=== PATIENT | female | born 1995 | race Caucasian/White ===

== ENCOUNTER 2017-03-28 14:02 | Emergency (ER) | payer OTHER ==
[~2017-03-28] VITALS: Ht 175.3 cm; Wt 71.0 kg
[~2017-03-28 14:02] MED LIST: PREN1CAP PO
[2017-03-28 14:03] VITALS: BP 129/59; PULSE 88; RESP 16; TEMP 98.2; O2SAT 99
[2017-03-28 15:19] LABS: BILIRUBIN, URINE NEG (NEG); BLOOD, URINE NEG (NEG); GLUCOSE,URINE TRACE mg/dL (NEG); KETONE, URINE NEG (NEG); NITRITE,URINE NEG (NEG); PH, URINE 6.5 (5.0-8.5); SQUAMOUS EPITHELIAL CELL URINE 1 /hpf (0-5); URINE COLOR YELLOW (YELLW/STRAW); URINE LEUKOCYTE ESTERASE NEG (NEG)
[2017-03-28 15:24] LABS: AUTOMATED NEUTROPHIL # 4.9 TH/MM3 (1.8-7.7); BASOPHIL % 0.2 % (0.0-2.0); EOSINOPHIL # 0.1 TH/MM3 (0-0.4); EOSINOPHIL % 1.4 % (0.0-4.0); HEMATOCRIT 40.5 % (35.0-46.0); LYMPH % 19.4 % (9.0-44.0); LYMPHOCYTE # 1.3 TH/MM3 (1.0-4.8); MEAN CELL VOLUME 89.5 FL (80.0-100.0); MEAN CORPUSCULAR HEMOGLOBIN 30.9 PG (27.0-34.0); MEAN CORPUSCULAR HGB CONC 34.5 % (32.0-36.0); MEAN PLATELET VOLUME 9.6 FL (7.0-11.0); MONO % 6.1 % (0.0-8.0); MONOCYTE # 0.4 TH/MM3 (0-0.9); NEUT % 72.9 % (16.0-70.0); PLATELET COUNT 211 TH/MM3 (150-450); RED BLOOD COUNT 4.52 MIL/MM3 (4.00-5.30); RED CELL DISTRIBUTION WIDTH 12.1 % (11.6-17.2); WHITE BLOOD COUNT 6.7 TH/MM3 (4.0-11.0)
[2017-03-28 15:32] LABS: BICARBONATE 23.2 MEQ/L (21.0-32.0); CALCIUM 8.7 MG/DL (8.5-10.1); CREATININE 0.77 MG/DL (0.50-1.00)
--- NOTE | 2017-03-28 16:32 | PD ---
HPI Chief Complaint: Related Problem Time Seen by Provider: 16:15 Travel History International Travel<30 days: No Contact w/Intl Traveler<30days: No Traveled to known affect area: No History of Present Illness HPI The patient is a 22-year-old female who presents to the emergency department for lower abdominal pain and cramping with spotting states she fell yesterday. The patient states she is currently 7 weeks , last menstrual cycle approximately February 01, 2017. The patient's who normally follows with a history teacher, will not be evaluated for another 4 weeks. The patient states she fell yesterday, striking her lower abdomen, complains of mild cramping and spotting, is concerned about the . She denies any dysuria, frequency, or urgency. Symptoms are mild, exacerbated after falling, there are no current alleviating factors. PFSH Past Medical History Diminished Hearing: No Immunizations Current: Yes ?: LMP: 02/03/2017 Social History Alcohol Use: No Tobacco Use: No Substance Use: No Allergies-Medications (Allergen,Severity, Reaction): Coded Allergies: No Known Allergies (Verified Adverse Reaction, Unknown, 03/28/17) Reported Meds & Prescriptions Reported Meds & Active Scripts Active Reported Vitafol Ultra 29-0.6-0.4-200 mg ( Vit W/ Fe Polysacch C) 29 Mg Iron-1 Mg -200 Mg Cap Review of Systems Except as stated in HPI: all other systems reviewed are Neg General / Constitutional: No: Fever HENT: No: Headaches, Neck Pain Cardiovascular: No: Chest Pain or Discomfort Respiratory: No: Shortness of Breath Gastrointestinal: No: Nausea, Vomiting, Abdominal Pain Genitourinary: Positive: Pelvic Pain, Vaginal Bleeding, No: Dysuria Physical Exam Narrative GENERAL: Awake, alert, pleasant 22-year-old female who appears her stated age is in no acute respiratory distress. SKIN: Focused skin assessment warm/dry. HEAD: Atraumatic. Normocephalic. EYES: Pupils equal and round. No scleral icterus. No injection or drainage. ENT: No nasal bleeding or discharge. Mucous membranes pink and moist. NECK: Trachea midline. No JVD. GASTROINTESTINAL: Abdomen soft, non-tender, nondistended. No visible ecchymosis. No guarding or rigidity. Pelvic: Exam was performed in the presence of a female nurse. External examination reveals no rashes or lesions. Speculum examination reveals no visible blood in the vaginal vault. Cervical IS closed. Mild erythema in a circumferential fashion around the os. MUSCULOSKELETAL: No obvious deformities. No clubbing. No cyanosis. No edema. NEUROLOGICAL: Awake and alert. No obvious cranial nerve deficits. Motor grossly within normal limits. Normal speech. PSYCHIATRIC: Appropriate mood and affect; insight and judgment normal. Data Data Last Documented VS Vital Signs Date Time Temp Pulse Resp B/P (MAP) Pulse Ox O2 Delivery O2 Flow Rate FiO2 03/28/17 16:30 18 03/28/17 14:03 98.2 88 129/59 (82) 99 Room Air Orders Orders Beta Hcg (Quant/Titer) (03/28/17 14:26) Complete Blood Count With Diff (03/28/17 14:26) Basic Metabolic Panel (Bmp) (03/28/17 14:26) Complete Rh (03/28/17 14:26) Urinalysis - C+S If Indicated (03/28/17 14:26) Ed Urine Pregnancytest Poc (03/28/17 14:26) Ed Poc Ultrasound (03/28/17 ) Labs Laboratory Tests Test 03/28/17 14:35 White Blood Count 6.7 TH/MM3 Red Blood Count 4.52 MIL/MM3 Hemoglobin 14.0 GM/DL Hematocrit 40.5 % Mean Corpuscular Volume 89.5 FL Mean Corpuscular Hemoglobin 30.9 PG Mean Corpuscular Hemoglobin Concent 34.5 % Red Cell Distribution Width 12.1 % Platelet Count 211 TH/MM3 Mean Platelet Volume 9.6 FL Neutrophils (%) (Auto) 72.9 % Lymphocytes (%) (Auto) 19.4 % Monocytes (%) (Auto) 6.1 % Eosinophils (%) (Auto) 1.4 % Basophils (%) (Auto) 0.2 % Neutrophils # (Auto) 4.9 TH/MM3 Lymphocytes # (Auto) 1.3 TH/MM3 Monocytes # (Auto) 0.4 TH/MM3 Eosinophils # (Auto) 0.1 TH/MM3 Basophils # (Auto) 0.0 TH/MM3 CBC Comment DIFF FINAL Differential Comment Urine Color YELLOW Urine Turbidity CLEAR Urine pH 6.5 Urine Specific [place] 1.023 Urine Protein NEG mg/dL Urine Glucose (UA) TRACE mg/dL Urine Ketones NEG mg/dL Urine Occult Blood NEG Urine Nitrite NEG Urine Bilirubin NEG Urine Urobilinogen LESS THAN 2.0 MG/DL Urine Leukocyte Esterase NEG Urine RBC LESS THAN 1 /hpf Urine WBC LESS THAN 1 /hpf Urine Squamous Epithelial Cells 1 /hpf Microscopic Urinalysis Comment CULT NOT INDICATED Blood Urea Nitrogen 13 MG/DL Creatinine 0.77 MG/DL Random Glucose 111 MG/DL Calcium Level 8.7 MG/DL Sodium Level 137 MEQ/L Potassium Level 3.4 MEQ/L Chloride Level 105 MEQ/L Carbon Dioxide Level 23.2 MEQ/L Anion Gap 9 MEQ/L Estimat Glomerular Filtration Rate 95 ML/MIN Human Chorionic Gonadotropin, Quant 68945 MIU/ML MDM Medical Decision Making Medical Screen Exam Complete: Yes Emergency Medical Condition: Yes Medical Record Reviewed: Yes Interpretation(s) Laboratory Tests Test 03/28/17 14:35 White Blood Count 6.7 TH/MM3 Red Blood Count 4.52 MIL/MM3 Hemoglobin 14.0 GM/DL Hematocrit 40.5 % Mean Corpuscular Volume 89.5 FL Mean Corpuscular Hemoglobin 30.9 PG Mean Corpuscular Hemoglobin Concent 34.5 % Red Cell Distribution Width 12.1 % Platelet Count 211 TH/MM3 Mean Platelet Volume 9.6 FL Neutrophils (%) (Auto) 72.9 % Lymphocytes (%) (Auto) 19.4 % Monocytes (%) (Auto) 6.1 % Eosinophils (%) (Auto) 1.4 % Basophils (%) (Auto) 0.2 % Neutrophils # (Auto) 4.9 TH/MM3 Lymphocytes # (Auto) 1.3 TH/MM3 Monocytes # (Auto) 0.4 TH/MM3 Eosinophils # (Auto) 0.1 TH/MM3 Basophils # (Auto) 0.0 TH/MM3 CBC Comment DIFF FINAL Differential Comment Urine Color YELLOW Urine Turbidity CLEAR Urine pH 6.5 Urine Specific [place] 1.023 Urine Protein NEG mg/dL Urine Glucose (UA) TRACE mg/dL Urine Ketones NEG mg/dL Urine Occult Blood NEG Urine Nitrite NEG Urine Bilirubin NEG Urine Urobilinogen LESS THAN 2.0 MG/DL Urine Leukocyte Esterase NEG Urine RBC LESS THAN 1 /hpf Urine WBC LESS THAN 1 /hpf Urine Squamous Epithelial Cells 1 /hpf Microscopic Urinalysis Comment CULT NOT INDICATED Blood Urea Nitrogen 13 MG/DL Creatinine 0.77 MG/DL Random Glucose 111 MG/DL Calcium Level 8.7 MG/DL Sodium Level 137 MEQ/L Potassium Level 3.4 MEQ/L Chloride Level 105 MEQ/L Carbon Dioxide Level 23.2 MEQ/L Anion Gap 9 MEQ/L Estimat Glomerular Filtration Rate 95 ML/MIN Human Chorionic Gonadotropin, Quant [id number] MIU/ML Differential Diagnosis Differential diagnosis includes normal , threatened AB, incomplete AB, ectopic , acute abdomen, intra-abdominal injury. Narrative Course Labs are drawn and sent. Beta hCG was greater than 50,000. Blood bank reveals a positive blood type, therefore, no indication for RhoGAM. Bedside ultrasound was performed which reveals an IUP with positive heart tones. A pelvic exam was then completed in the presence of a female nurse. Pelvic examination reveals mild erythema on the cervix around the house that the office is closed and there is no visible blood in the vaginal vault. Patient is stable for outpatient follow-up with a sealant mixer/micro photographer. Procedures Procedure Narrative A bedside ultrasound was performed using a curvilinear probe which reveals an IUP with positive heart tones. The patient tolerated the procedure without difficulty. There was no obvious complications. Diagnosis Primary Impression: Threatened Patient Instructions: General Instructions Additional Instructions: Take a vitamin. Follow-up with a sealant mixer. Return if symptoms worsen or progress. No sexual activity or heavy exertional activity for one week. Med/Other Pt SpecificInfo: No Change to Meds Disposition: 01 DISCHARGE HOME Condition: Stable Rell Vines MD Mar 28, 2017 16:32
[2017-03-28] MEDS ORDERED: PREN1CAP (16:38)
== END 2017-03-28 17:01 | disposition home or self-care (01) ==
LOC: NEPD 14:02
DX: O20.0 Threatened abortion (principal); W19.XXXA Unspecified fall, initial encounter; Z3A.01 Less than 8 weeks gestation of pregnancy
CPT/HCPCS: 80048; 81001; 84702; 84703; 85025; 86901; 99284

== ENCOUNTER 2017-10-27 11:29 | Inpatient (IN) ==
[2017-10-27] MEDS ORDERED: Sod Chloride 0.9% Inj 1,000 ML IV.CONT PRN (11:48)
[2017-10-27] MEDS ORDERED: Sodium Chlor 0.9% Inj 500 ML IV.SIG PRN (11:48)
[2017-10-27] MEDS ORDERED: Oxytocin 30 Units/500ml Premix 30 UNITS/500 ML BAG IV.SIG ONE (11:48)
[2017-10-27] MEDS ORDERED: Naloxone Inj 0.4 MG/ML Vial IV.PUSH PRN ×2 (11:48→15:22)
[2017-10-27] MEDS ORDERED: fentaNYL Citrate Inj 100 MCG/2 ML Ampul IV.PUSH PRN ×2 (11:48)
[2017-10-27] MEDS ORDERED: Citric Acid/Sodium Citrate Liq 30 ML UDC PO SCH (12:00)
--- NOTE | 2017-10-27 12:14 | ED ---
History of Present Illness Service: OB Primary Care Physician: No Primary Care Physician Chief Complaint: Contractions History of Present Illness: This is a patient of Pricila Gleason who is @ 37/6 weeks presenting to OB ED w/painful contractions. Denies leakage of fluids, current bleeding, or decreased movement. Had some vaginal bleeding yesterday, but underwent examination in the [facility] and was told there were no problems. +FM. No problems or issues this . Denies drug use or hx of STIs. GBS unknown. OB Hx: 1. in 2016, weight 7lb 9oz 2. Current no complications Weeks Gestation:: 37 Para: 1 : 2 Review of Systems Constitutional: Denies headache(s) Gastrointestinal: Denies abdominal pain Musculoskeletal: Reports other (No edema) PMFSH - History History Provided By: Patient - Medical / Surgical Hx Neg / Unobtainable Surgical History: No Previous Surgery - Medical History Medical History: Medical History (Last Updated 10/24/17 @ 19:35 by Rigoberto Paris MD) 37 weeks gestation of (Acute) - Family History Family History: Family History (Last Updated 10/24/17 @ 19:52 by Rigoberto Paris MD) Other No family history of disorders - Tobacco History Second Hand Smoke Exposure: No Tobacco Use In Past 30 Days: No Smoking Status: Never smoker - Alcohol History How Often Do You Have a Drink Containing Alcohol: Never - Substance Use History Substance History: No History of Abuse - Travel History History of Recent Travel: No Medications and Allergies Allergies Allergy/AdvReac Type Severity Reaction Status Date / Time No Known Allergies Allergy Verified 10/27/17 12:30 Exam Narrative: General: well developed, well nourished, no acute distress HEENT: normocephalic atraumatic, extraocular movements intact, neck supple Abdomen: soft, gravid, nontender, nondistended Uterus: fundus term Extremities: full range of motion Skin: normal coloration, no rashes, no suspicious skin lesions noted Neurologic: cranial nerves 2-12 grossly intact, normal muscle tone, normal gait Psychiatric: normal mood and affect, appropriate FHTs: 140s, +accels, no decels, moderate variability, reactive [place]: variable, irregular Cvx: 10 /100/0 Results - Labs CBC & Chem 7: 10/27/17 12:06 Assessment and Plan - Diagnosis (1) 37 weeks gestation of Code(s): Z3A.37 - 37 weeks gestation of Status: Acute - Plan @37/6 weeks presenting to the P[facility] in active labor. GBS unknown, but first was GBS negative. Cervical exam 10/100/0, FHT category 1. Plan to monitor, cervical recheck in 1-2 hrs. Discussed w/Dr. Calles - Attending Attestation The patient was seen and examined by me and I participated in all hernandez decision making. Admit for labor. Reassuring heart rate tracing. [facility] Discharge Plan - Discharge Order Discharge Orders: Discharge Order (Routine); Ordered 10/28/17 Ordered By: Fabiano Grant - Physicians Team Primary Care Provider: Primary Care Dave,No Attending Provider: Maria L Calles
[2017-10-27 12:45] LABS: Baso % (Auto) 0.2 % (0.0-2.0); Eos # (Auto) 0.1 th/mm3 (0.0-0.4); Eos % (Auto) 1.4 % (0.0-4.0); Hematocrit 38.2 % (35.0-46.0); Hemoglobin 12.8 gm/dL (11.6-15.3); Lymph # (Auto) 1.5 th/mm3 (1.0-4.8); Lymph % (Auto) 17.4 % (9.0-44.0); Mean Corpuscular HGB Conc 33.4 % (32.0-36.0); Mean Corpuscular Hemoglobin 27.3 pg (27.0-34.0); Mean Corpuscular Volume 81.8 fL (80.0-100.0); Mean Platelet Volume 10.4 fL (7.0-11.0); Mono # (Auto) 0.6 th/mm3 (0.0-0.9); Mono % (Auto) 6.4 % (0.0-8.0); Neut # (Auto) 6.5 th/mm3 (1.8-7.7); Neut % (Auto) 74.6 % (16.0-70.0); Platelet Count 185 th/mm3 (150-450); Red Blood Count 4.68 mil/mm3 (4.00-5.30); Red Cell Distribution Width 12.6 % (11.6-17.2); White Blood Count 8.7 th/mm3 (4.0-11.0)
--- NOTE | 2017-10-27 12:53 | P.HPOB ---
2 History of Present Illness Service: OB Primary Care Physician: No Primary Care Physician Chief Complaint: Contractions History of Present Illness: This is a patient of Pricila Gleason who is @ 37/6 weeks presenting to OB ED w/painful contractions. Denies leakage of fluids, current bleeding, or decreased movement. Had some vaginal bleeding yesterday, but underwent examination in the [facility] and was told there were no problems. +FM. No problems or issues this . Denies drug use or hx of STIs. GBS unknown. OB Hx: 1. in 2016, weight 7lb 9oz 2. Current no complications Weeks Gestation:: 37 Para: 1 : 2 Review of Systems Constitutional: Denies headache(s) Gastrointestinal: Denies abdominal pain Musculoskeletal: Reports other (No edema) PMFSH - History History Provided By: Patient - Medical / Surgical Hx Neg / Unobtainable Surgical History: No Previous Surgery - Medical History Medical History: Medical History (Last Updated 10/24/17 @ 19:35 by Rigoberto Paris MD) 37 weeks gestation of (Acute) - Family History Family History: Family History (Last Updated 10/24/17 @ 19:52 by Rigoberto Paris MD) Other No family history of disorders - Tobacco History Second Hand Smoke Exposure: No Tobacco Use In Past 30 Days: No Smoking Status: Never smoker - Alcohol History How Often Do You Have a Drink Containing Alcohol: Never - Substance Use History Substance History: No History of Abuse - Travel History History of Recent Travel: No Medications and Allergies Allergies Allergy/AdvReac Type Severity Reaction Status Date / Time No Known Allergies Unknown Uncoded 03/28/17 16:32 Exam Narrative: General: well developed, well nourished, no acute distress HEENT: normocephalic atraumatic, extraocular movements intact, neck supple Abdomen: soft, gravid, nontender, nondistended Uterus: fundus term Extremities: full range of motion Skin: normal coloration, no rashes, no suspicious skin lesions noted Neurologic: cranial nerves 2-12 grossly intact, normal muscle tone, normal gait Psychiatric: normal mood and affect, appropriate FHTs: 140s, +accels, no decels, moderate variability, reactive [place]: variable, irregular Cvx: 10 /100/0 Assessment and Plan - Diagnosis (1) 37 weeks gestation of Code(s): Z3A.37 - 37 weeks gestation of Status: Acute - Plan @37/6 weeks presenting to the P[facility] in active labor. GBS unknown, but first was GBS negative. Cervical exam 100/0, FHT category 1. Plan to monitor, cervical recheck in 1-2 hrs. Discussed w/Dr. Calles Discharge Plan - Physicians Team Primary Care Provider: Primary Care Dave,Susu Attending Provider: Maria L Calles The patient was seen and examined by me and I participated in all hernandez decision making. Admit for labor at term, reassuring heart rate tracing. SMS
--- NOTE | 2017-10-27 12:53 | P.PN ---
Subjective Interval history: Delivery Note The patient presented at completely dilated with reassuring heart tones. The patient commenced spontaneous maternal expulsive efforts with overall reassuring heart tones. The head delivered spontaneously and atraumatically and a compound presentation was noted with the right hand. The anterior shoulder delivered spontaneously and atraumatically followed by spontaneous and atraumatic delivery of the remainder of the . The was placed on the maternal abdomen and was vigorous. The cord was double clamped and cut and the moved to the warmer. Cord blood was obtained for the nursery and the placenta delivered spontaneously. A superficial right labial laceration was noted but was well approximated and noted to be hemostatic. A few small abrasions of the posterior vaginal were noted but were hemostatic. Apgars 9/9. EBL 150cc. Mother and are both doing well. Physical Exam Vital signs: Vital Signs 10/27/17 11:53 10/27/17 12:00 10/27/17 12:15 Pulse Rate 70 19 L Respiratory Rate 20 Blood Pressure 121/66 Intake & Output 10/26/17 10/27/17 10/27/17 18:59 06:59 18:59 Weight 82.663 kg Other: Weight On Admission 82.554 kg Results - Labs CBC & Chem 7: 10/27/17 12:06 Laboratory Results - last 24 hr 10/27/17 12:06 WBC 8.7 RBC 4.68 Hgb 12.8 Hct 38.2 MCV 81.8 MCH 27.3 MCHC 33.4 RDW 12.6 Plt Count 185 MPV 10.4 Neut % (Auto) 74.6 H Lymph % (Auto) 17.4 [place] % (Auto) 6.4 Eos % (Auto) 1.4 Baso % (Auto) 0.2 Neut # (Auto) 6.5 Lymph # (Auto) 1.5 [place] # (Auto) 0.6 Eos # (Auto) 0.1 Baso # (Auto) 0.0 WBC Differential . Differential Comment Auto diff final
--- NOTE | 2017-10-27 12:58 | P.OBDELI ---
Weeks Gestation: 37 Artificial Rupture of Membrane: No Anesthesia: None Vaginal Delivery: Normal, Spontaneous Presentation: Occiput anterior Nuchal Cord: None Delayed Cord Clamping (45 sec): Yes Placenta: Spontaneous delivery, Intact, Uterus explored +, 3 vessel cord, Cord pH Laceration: None Estimated blood loss (mL): 250 Infant: Male
[2017-10-27] MEDS ORDERED: Bisacodyl 10 MG Supp RECTAL PRN (15:22)
[2017-10-27] MEDS ORDERED: Witch Hazel 50%/Glyderin 12.5% 40 Pad Jar RECTAL PRN (15:22)
[2017-10-27] MEDS ORDERED: Zolpidem Tartrate 5 MG Tablet PO PRN (15:22)
[2017-10-27] MEDS ORDERED: Benzocaine 20% Top Spray 60 ML Can TOPICAL PRN (15:22)
[2017-10-27] MEDS ORDERED: Oxytocin 30 Units/500ml Premix 30 UNITS/500 ML BAG IV.CONT SCH (15:30)
[2017-10-27 15:45] LABS: Bilirubin,Urine Negative (Negative); Clarity,Urine Clear (Clear); Color,Urine Straw (Yellw/Straw); Glucose,Urine (UA) Negative (Negative); Leukocyte Esterase,Urine Negative (Negative); Mucus,Urine Few /lpf (Occasional); Nitrite,Urine Negative (Negative); Specific Gravity,Urine 1.006 (1.002-1.035)
[2017-10-27 15:50] LABS: Amphetamine Urine With Conf Neg (Neg); Benzodiazepine Urine With Conf Neg (Neg)
[2017-10-27] MEDS ORDERED: Measles/Mumps/Rubella Vaccine Inj 0.5 ML Vial SQ ONE (16:00)
[2017-10-27] MEDS ORDERED: Diphtheria/Tetanus/Pertussis Vaccine Inj 0.5 ML Syringe IM ONE (16:00)
[2017-10-27] MEDS: Ibuprofen 600 MG Tablet PO PRN ×2 (16:34→22:47)
[2017-10-27] MEDS: Acetaminophen 325 MG Tablet PO PRN ×2 (16:34→22:46)
[2017-10-27] MEDS: Senna/Docusate Sodium 8.6/50 MG Tablet PO SCH (22:46)
[2017-10-28 06:43] VITALS: RESP 18
[2017-10-28] MEDS: Senna/Docusate Sodium 8.6/50 MG Tablet PO SCH (09:14)
[2017-10-28 09:19] VITALS: BP 115/72; PULSE 61; TEMP 97.9
--- NOTE | 2017-10-28 09:33 | P.PNOB ---
Subjective Post day: 1 Interval history: day #1 AFVSS overnight. Decreased lochia. Denies dysuria. No breast tenderness. Appetite good. No nausea or vomiting. Positive flatus. Ambulating well. Denies calf pain or shortness of breath. Otherwise, she is doing well this morning and has no other complaints. Objective Vital Signs/I&O: Vital Signs 10/27/17 11:53 10/27/17 12:00 10/27/17 12:15 Temperature Pulse Rate 70 19 L Respiratory Rate 20 Blood Pressure 121/66 10/27/17 13:06 10/27/17 13:55 10/27/17 14:10 Temperature Pulse Rate 64 65 77 Respiratory Rate 17 18 17 Blood Pressure 133/72 114/66 123/76 10/27/17 14:30 10/27/17 14:45 10/27/17 16:00 Temperature 98.0 F 97.9 F Pulse Rate 89 88 Respiratory Rate 17 18 16 Blood Pressure 95/75 L 112/70 10/27/17 21:45 10/28/17 08:00 Temperature 98.1 F 97.9 F Pulse Rate 82 61 Respiratory Rate 18 18 Blood Pressure 110/70 115/72 Intake & Output 10/27/17 10/28/17 10/28/17 18:59 06:59 18:59 Weight 82.663 kg Other: Weight On Admission 82.554 kg Result Diagrams: 10/27/17 12:06 Objective Remarks: GENERAL: Well-nourished, well-developed patient. CARDIOVASCULAR: Regular rate and rhythm without murmurs, gallops, or rubs. RESPIRATORY: Breath sounds equal bilaterally. No accessory muscle use. ABDOMEN/GI: Abdomen soft, non-tender. Fundus: Firm, non-tender at umbilicus. GENITOURINARY: Light to moderate bleeding. EXTREMITIES: No cyanosis or edema, non-tender, without signs of DVT. Medications and IVs: Active Medications Acetaminophen (Tylenol) 650 mg PO Q4H PRN PRN Reason: PAIN SCALE 1 TO 2 Last Admin: 10/27/17 22:46 Dose: 650 mg Al Hydroxide/Mg Hydroxide (Milk Of Magnesia Liq) 30 ml PO Q12H PRN PRN Reason: Mild Constipation Benzocaine (Americaine 20% Top [place]) 1 spray TOPICAL Q4H PRN PRN Reason: For Perineum Discomfort Bisacodyl (Dulcolax Supp) 10 mg RECTAL DAILY PRN PRN Reason: SEVERE CONSITIPATION Lactated Ringer's (Lr 1000 Ml Inj) 1,000 mls @ 125 mls/hr IV.CONT .Q8H [facility] Last Admin: 10/27/17 12:09 Dose: 125 mls/hr Lactated Ringer's (Lr 1000 Ml Inj) 1,000 mls @ 3,000 mls/hr IV.SIG UNSCH PRN PRN Reason: compromise or epidural Ibuprofen (Motrin) 600 mg PO Q6H PRN PRN Reason: CRAMPS Last Admin: 10/27/17 22:47 Dose: 600 mg Lactulose (Lactulose Liq) 30 ml PO DAILY PRN PRN Reason: SEVERE CONSITIPATION Lidocaine HCl (Xylocaine 1% Inj) 10 ml INFILTRATN PRN PRN PRN Reason: For episiotomy repair Stop: 10/29/17 11:47 Lidocaine HCl (Xylocaine 1% Inj) 0.1 ml I-DERMAL PRN PRN PRN Reason: For IV start Stop: 10/30/17 11:47 Naloxone HCl (Narcan Inj) 0.1 mg IV.PUSH Q2M PRN PRN Reason: for opiate reversal Ondansetron HCl (Zofran Odt) 4 mg PO Q6H PRN PRN Reason: NAUSEA OR VOMITING Senna/Docusate Sodium (Susie-Colace) 1 tab PO BID [facility] Last Admin: 10/28/17 09:14 Dose: 1 tab Sennosides (Senokot) 17.2 mg PO Q12H PRN PRN Reason: Moderate Constipation Sodium Chloride (Ns Flush) 2 ml IV.FLUSH BID [facility] Last Admin: 10/28/17 09:15 Dose: Not Given Sodium Chloride (Ns Flush) 2 ml IV.FLUSH PRN PRN PRN Reason: FLUSH AFTER USING IV ACCESS Witch Cathy/Glycerin (Tucks Pads) 1 applicatio RECTAL QID PRN PRN Reason: HEMORRHOIDS Zolpidem Tartrate (Ambien) 5 mg PO HS PRN PRN Reason: SLEEP Assessment and Plan - Diagnosis (1) 37 weeks gestation of Code(s): Z3A.37 - 37 weeks gestation of Status: Acute - Plan 22y/o female who is PPD#1 s/p . -Continue routine care. -Motrin PRN pain. -Encouraged OOB. Advised pelvic rest for 6 wks. -Re: ctrl, she is considering IUD versus something. -D/c today or tomorrow wdw Dr. Calles Discharge Planning: The patient was seen and examined by me and I participated in all hernandez decision making. Continue routine care. SMS
[2017-10-28] MEDS ORDERED: Diphtheria/Tetanus/Pertussis Vaccine Inj 0.5 ML Syringe IM ONE ×2 (18:00)
== END 2017-10-28 18:23 | disposition home or self-care (01) ==
LOC: HOBED 11:29 → H2E 11:46 → H1EA 15:19
PROVIDERS: ADMIT Obstetrics & Gynecology; ATTEND Obstetrics & Gynecology